=== PATIENT | female | born 1955 | race Caucasian/White ===

== ENCOUNTER 2019-11-18 20:21 | Emergency (ER) | payer OTHER, SELFPAY ==
--- OUTSIDE RECORDS SUMMARY | 2019-11-18 20:23 | XMS REPORT | Summary of Care ---
:1955 Author Name EMILIANO RAMOS M.D. Address Unavailable Unavailable , Care Team Providers Name Role Phone RICHARD Euceda, EMILIANO Unavailable Unavailable Dilan Valenzuela M.A. Unavailable Unavailable RICHARD FRANKS [place], EMILIANO Gusman Unavailable Unavailable MAUREEN FRANKS [place], JOSE Diaz Unavailable Unavailable Unavailable Unavailable Unavailable Functional Status Name Dates Details Functional status health issues are not documented Status: Name Dates Details Cognitive status health issues are not documented Status: Problems Name Dates Details Left knee pain (719.46, M25.562) Status: Active Primary localized osteoarthritis of left knee (715.16, M17.12) Status: Active Medications Name Dates Details Ventolin NEBU Refills: 0 Active ALPRAZolam 0.5 MG Oral Tablet Refills: 0 Active Adderall XR CP24 Refills: 0 Active Aspirin 81 81 MG Oral Tablet Delayed Release Refills: 0 Active Vitamin D-3 125 MCG (5000 UT) Oral Tablet Refills: 0 Active Choline 648 MG TABS Refills: 0 Active Cymbalta 30 MG Oral Capsule Delayed Release Particles Refills: 0 Active Esomeprazole Magnesium 20 MG Oral Capsule Delayed Release Refills: 0 Active Flonase Allergy Relief SUSP Refills: 0 Active Gabapentin TABS Refills: 0 Active Hydrochlorothiazide 100 MG TABS Refills: 0 Active Lantus SOLN Refills: 0 Active Liothyronine Sodium 25 MCG Oral Tablet Refills: 0 Active Magnesium 400 MG Oral Tablet Refills: 0 Active NovoLOG 100 UNIT/ML Subcutaneous Solution Refills: 0 Active Nucynta TABS Refills: 0 Active Benicar TABS Refills: 0 Active Premarin 0.625 MG/GM Vaginal Cream Refills: 0 Active Rexulti 1 MG Oral Tablet Refills: 0 Active Synthroid 100 MCG Oral Tablet Refills: 0 Active Vitamin C CAPS Refills: 0 Active Zyrtec 10 MG TABS Refills: 0 Active Meloxicam 7.5 MG Oral Tablet TAKE 1 TABLET TWICE DAILY. Quantity: 60 Refills: 6 EMILIANO RAMOS M.D. Start : 30-Oct-2018 Active Allergies and Adverse Reactions Name Dates Details No Known Allergies (Allergy) Status: Active Past Medical History Name Dates Details History of Asthma (493.90, J45.909) Status: Resolved History of bladder infections (V13.02, Z87.440) Status: Resolved History of CRPS (complex regional pain syndrome), type I, upper (337.21, G90.519) Status: Resolved History of Diabetes mellitus, type 2 (250.00, E11.9) Status: Resolved History of High blood pressure (401.9, I10) Status: Resolved History of reflex sympathetic dystrophy (V12.49, Z86.69) Status: Resolved History of vertigo (V12.49, Z87.898) Status: Resolved Procedures Procedure Dates Details History of Hip Replacement Right Completed History of Arm surgery Completed History of Cholecystectomy Completed History of Hysterectomy Completed History of Pain Management By Electrical Stimulus Completed Immunization Name Dates Details Immunizations not documented Family History Name Dates Details Family history of valvular heart disease (V17.49, Z82.49) Status: Active Name Dates Details Family history of No known problems (V49.89, Z78.9) Status: Active Social History Name Dates Details - Status: Name Dates Details Never smoker Vital Signs Date Test Result Details No Known Vitals to report Results Date Description Value Details Results not documented Plan of Care Name Dates Details Planned Observations Planned Goals not documented Interventions Provided Medication ChangesMeloxicam 7.5 MG Oral Tablet - Renew Instructions Name Dates Details Instructions not documented Encounters Appointment; EMILIANO RAMOS M.D. On: 30-Oct-2018 14:30 Encounter Diagnosis: Problem not documented
--- OUTSIDE RECORDS SUMMARY | 2019-11-18 20:23 | XMS REPORT ---
:1955 Author Organization [facility] Address [address] [place] [address] Care Team Providers Name Role Phone TERRI MICHAEL Unavailable Unavailable Problems This patient has no known problems. Allergies, Adverse Reactions, Alerts This patient has no known allergies or adverse reactions. Medications This patient has no known medications. Encounters Start End Encounter Admission Attending Care Care Encounter Date/Time Date/Time Type Type Clinicians Facility Department ID 2019-04-23 2019-05-24 Outpatient C JO ANN MICHAEL PT [id number] 15:26:00 23:59:00 TERRI
--- NOTE | 2019-11-18 20:59 | RAD REPORT ---
EXAM DESCRIPTION: RAD - Chest Single View - 11/18/2019 8:52 pm CLINICAL HISTORY: COUGH Chest pain. COMPARISON: No comparisons FINDINGS: Portable technique limits examination quality. The lungs are grossly clear. The heart is normal in size. No displaced fractures. IMPRESSION: No acute intrathoracic process suspected.
[2019-11-18 21:07] LABS: Absolute Lymphocytes (CBC) 1.4 K/uL (0.7-4.9); Basophils % 0.3 % (0-1.3); Hematocrit 40.1 % (36.0-45.0); Lymphocytes % 13.7 % (15.3-44.8); MPV 7.5 fL (7.6-11.3); RBC Red Blood Cell Count 4.55 M/uL (3.86-4.86)
[2019-11-18 21:11] LABS: Protime INR 0.96
[2019-11-18 21:15] LABS: ALT/SGPT 23 U/L (12-78); AST/SGOT 13 U/L (15-37); Albumin 3.9 g/dL (3.4-5.0); Alkaline Phosphatase 59 U/L (45-117); BUN Blood Urea Nitrogen 19 mg/dL (7-18); Bicarbonate 27 mmol/L (21-32); Bilirubin Direct 0.1 mg/dL (0-0.2); Bilirubin Total 0.3 mg/dL (0.2-1.0); CKMB Creatine Kinase MB 2.1 ng/mL (0.3-3.6); Creatine Phosphokinase 70 U/L (26-192); Glucose Level 106 mg/dL (74-106); Lipase 98 U/L (73-393); NT PRO-BNP 113 pg/mL (<125); Protein, Total 7.7 g/dL (6.4-8.2); Sodium Level 130 mmol/L (136-145); Troponin (Emerg Dept Use Only) < 0.02 ng/mL (0.0-0.045)
--- NOTE | 2019-11-18 21:48 | ER ---
Nurse's Notes [facility] Name: Karol Styles Age: 64 yrs Sex: Female : 1955 Arrival Date: 11/18/2019 Time: 20:23 Bed 7 Private MD: Diagnosis: Bronchitis, not specified as acute or chronic Presentation: 11/17 20:24 Chief complaint: EMS states: SHE WAS HAVING WEAKNESS, NON PRODUCTIVE COUGH, AND FEVER rv FOR A WEEK NOW. SHE CALLED HER DOCTOR AND WAS ADVISED TO COME TO CHECK IF SHE HAS PNEUMONIA. HER OXYGEN SATURATION IS AT 94-95% ON ROOM AIR. Coronavirus screen: Surgical mask placed on patient. Patient moved to private room, placed in contact and droplet isolation with eye protection until further assessment. Patient reports a cough. Patient reports shortness of breath or difficulty breathing. Patient denies measured and/or subjective temperature greater than 100.4F. Patient denies travel on a cruise ship or to a country the [facility] currently lists as an affected area. Patient denies contact with known and/or suspected case of COVID-19. Ebola Screen: No symptoms or risks identified at this time. Initial Sepsis Screen: Does the patient meet any 2 criteria? No. Patient's initial sepsis screen is negative. Does the patient have a suspected source of infection? No. Patient's initial sepsis screen is negative. Risk Assessment: Do you want to hurt yourself or someone else? Patient reports no desire to harm self or others. 20:24 Acuity: GAY 3 rv 20:24 Method Of Arrival: [facility] rv 20:24 Chief complaint: Patient states: I ALSO HAVE CHEST PRESSURE AND IT FEELS LIKE THERE'S rv AN ELEPHANT SITTING ON ME. AND IT STARTED ALSO A WEEK AGO. TODAY I STARTED TO FEEL DIZZY. 20:33 Onset of symptoms was November 12, 2019 at 08:00. rv Triage Assessment: 20:31 General: Appears in no apparent distress. comfortable, Behavior is calm, cooperative. rv Pain: Complains of pain in chest Pain does not radiate. Quality of pain is described as pressure. EENT: No signs and/or symptoms were reported regarding the EENT system. Neuro: Level of Consciousness is awake, alert, obeys commands, Oriented to person, place, time, situation. Cardiovascular: Patient's skin is warm and dry. Rhythm is regular Chest pain quality is heaviness, is located in left began a week ago. Respiratory: Reports shortness of breath at rest Airway is patent Respiratory effort is even, Breath sounds are clear bilaterally. Onset: The symptoms/episode began/occurred a week ago, the patient has mild shortness of breath. Derm: Skin is intact. Musculoskeletal: Reports weakness in generalized. Historical: - Allergies: 20:31 No Known Allergies; rv - Home Meds: 20:31 Symbicort inhalation inhalation [Active]; rv - PMHx: 20:31 Diabetes - IDDM; Asthma; Hypertension; rv - PSHx: 20:31 right arm sx; Hysterectomy; Cholecystectomy; hip replacement; Tonsillectomy; Hernia rv repair; - Immunization history:: Adult Immunizations up to date, Flu vaccine is up to date. - Social history:: Smoking status: Patient denies any tobacco usage or history of. Screenin:33 Abuse screen: Denies threats or abuse. Denies injuries from another. Nutritional rv screening: No deficits noted. Tuberculosis screening: No symptoms or risk factors identified. Fall Risk None identified. Assessment: 20:34 Reassessment: see triage notes. rv Vital Signs: 20:16 BP 159 / 101; Pulse 82; Resp 22; Pulse Ox 95% on R/A; Pain 0/10; lw1 20:24 BP 162 / 92; Pulse 89; Resp 18; Temp 98.9; Pulse Ox 97% on R/A; Weight 107.05 kg; rv Height 5 ft. 8 in. (172.72 cm); Pain 0/10; 21:17 BP 139 / 90; Pulse 75; Resp 20; Pulse Ox 95% on R/A; lw1 21:48 BP 134 / 78; Pulse 83; Resp 20; Pulse Ox 97% on R/A; Pain 0/10; lw1 20:24 Body Mass Index 35.88 (107.05 kg, 172.72 cm) rv ED Course: 20:23 Patient arrived in ED. ds1 20:23 Primo Martinez MD is Attending Physician. tw4 20:23 Pedro Suarez, SHARIF is Primary Nurse. rv 20:28 Triage completed. rv 20:30 First set of blood cultures drawn BY HCANTEL EKG done, by ED staff, reviewed by rr5 Primo Martinez MD. Inserted saline lock: 20 gauge in right forearm, using aseptic technique. ,using aseptic technique. BY CHANTEL. 20:33 Arm band placed on Patient placed in the treatment room, on a stretcher, Patient rv notified of wait time. 20:33 Patient has correct armband on for positive identification. hospital monitor on. Pulse rv ox on. NIBP on. 20:40 Second set of blood cultures drawn by mn. rr5 20:52 XRAY CXR (1 view) In Process Unspecified. EDMS 22:02 No provider procedures requiring assistance completed. IV discontinued, intact, rv bleeding controlled, No redness/swelling at site. Pressure dressing applied. Administered Medications: No medications were administered Outcome: 21:47 Discharge ordered by . tw4 22:03 Discharged to home ambulatory, with family. rv 22:03 Condition: good 22:03 Discharge instructions given to patient, family, Instructed on discharge instructions, follow up and referral plans. medication usage, Demonstrated understanding of instructions, follow-up care, medications, Prescriptions given X 3. 22:44 Patient left the ED. mw2 Signatures: Dispatcher [employer] EDOR Breanne Kelly ds1 Primo Martinez MD MD tw4 Andres Matt mw2 Pedro Suarez RN RN rv Chantel Arriaga, RN RN rr5 Katrina Ridley, RN RN lw1 Corrections: (The following items were deleted from the chart) 20:35 20:24 Method Of Arrival: EMS: [facility] rv rv 20:42 20:39 Inserted saline lock: 20 gauge in right forearm, using aseptic technique. ,using rv aseptic technique. BY CHANTEL rv 20:50 20:13 First set of blood cultures drawn BY CHANTEL EKG done, by ED staff, reviewed by rr5 Primo Martinez MD rv 20:50 20:13 Inserted saline lock: 20 gauge in right forearm, using aseptic technique. ,using rr5 aseptic technique. BY CHANTEL rv
--- NOTE | 2019-11-18 21:48 | EDPHYS ---
Physician Documentation [facility] Name: Karol Styles Age: 64 yrs Sex: Female : 1955 Arrival Date: 11/18/2019 Time: 20:23 Bed 7 Private MD: ED Physician Primo Martinez HPI: 11/18 04:59 This 64 yrs old Female presents to ER via EMS with complaints of Shortness Of tw4 Breath, Fever. 04:59 The patient has shortness of breath at rest. Onset: The symptoms/episode began/occurred tw4 1 week(s) ago. Duration: The symptoms are continuous, and are unchanged since they started. The patient's shortness of breath has no apparent modifying factors. Associated signs and symptoms: The patient has no apparent associated signs or symptoms. Severity of symptoms: At their worst the symptoms were mild in the emergency department the symptoms are unchanged. The patient has not experienced similar symptoms in the past. Historical: - Allergies: 11/17 20:31 No Known Allergies; rv - Home Meds: 20:31 Symbicort inhalation inhalation [Active]; rv - PMHx: 20:31 Diabetes - IDDM; Asthma; Hypertension; rv - PSHx: 20:31 right arm sx; Hysterectomy; Cholecystectomy; hip replacement; Tonsillectomy; Hernia rv repair; - Immunization history:: Adult Immunizations up to date, Flu vaccine is up to date. - Social history:: Smoking status: Patient denies any tobacco usage or history of. ROS: 11/18 04:59 Back: Negative for injury and pain, MS/Extremity: Negative for injury and deformity, tw4 Skin: Negative for injury, rash, and discoloration. Respiratory: Positive for cough, shortness of breath, Negative for dyspnea on exertion, hemoptysis, orthopnea, pleurisy. 04:59 Eyes: Negative for injury, pain, redness, and discharge, ENT: Negative for injury, tw4 pain, and discharge, Neck: Negative for injury, pain, and swelling, Cardiovascular: Negative for chest pain, palpitations, and edema, Abdomen/GI: Negative for abdominal pain, nausea, vomiting, diarrhea, and constipation, Neuro: Negative for headache, weakness, numbness, tingling, and seizure. 04:59 Constitutional: Positive for fever, Negative for body aches, chills, fatigue, poor PO intake, weight loss. Exam: 04:59 Constitutional: This is a well developed, well nourished patient who is awake, alert, tw4 and in no acute distress. Head/Face: Normocephalic, atraumatic. Chest/axilla: Normal chest wall appearance and motion. Nontender with no deformity. No lesions are appreciated. Cardiovascular: Regular rate and rhythm with a normal S1 and S2. No gallops, murmurs, or rubs. Normal PMI, no JVD. No pulse deficits. Respiratory: Lungs have equal breath sounds bilaterally, clear to auscultation and percussion. No rales, rhonchi or wheezes noted. No increased work of breathing, no retractions or nasal flaring. Abdomen/GI: Soft, non-tender, with normal bowel sounds. No distension or tympany. No guarding or rebound. No evidence of tenderness throughout. Back: No spinal tenderness. No costovertebral tenderness. Full range of motion. MS/ Extremity: Pulses equal, no cyanosis. Neurovascular intact. Full, normal range of motion. Neuro: Awake and alert, GCS 15, oriented to person, place, time, and situation. Cranial nerves II-XII grossly intact. Motor strength 5/5 in all extremities. Sensory grossly intact. Cerebellar exam normal. Normal gait. Vital Signs: 11/17 20:16 BP 159 / 101; Pulse 82; Resp 22; Pulse Ox 95% on R/A; Pain 0/10; lw1 20:24 BP 162 / 92; Pulse 89; Resp 18; Temp 98.9; Pulse Ox 97% on R/A; Weight 107.05 kg; rv Height 5 ft. 8 in. (172.72 cm); Pain 0/10; 21:17 BP 139 / 90; Pulse 75; Resp 20; Pulse Ox 95% on R/A; lw1 21:48 BP 134 / 78; Pulse 83; Resp 20; Pulse Ox 97% on R/A; Pain 0/10; lw1 20:24 Body Mass Index 35.88 (107.05 kg, 172.72 cm) rv MDM: 21:47 Patient medically screened. tw4 11/18 04:59 Differential diagnosis: Anemia Anxiety Reaction pneumonia, reactive airway disease, tw4 Sepsis. Antibiotic administration: The patient is discharged and will get outpatient antibiotics, Zithromax. Data reviewed: vital signs, nurses notes. Data interpreted: Pulse oximetry: Interpretation: normal. Counseling: I had a detailed discussion with the patient and/or guardian regarding: the historical points, exam findings, and any diagnostic results supporting the discharge/admit diagnosis. Physician consultation: Eric Franklin MD regarding need to evaluate the patient as soon as possible, and will see patient in office. Special discussion: I discussed with the patient/guardian in detail that at this point there is no indication for admission to the hospital. It is understood, however, that if the symptoms persist or worsen the patient needs to return immediately for re-evaluation. 11/17 20:24 Order name: Blood Culture Adult (2) 11/17 20:24 Order name: BMP; Complete Time: 21:41 11/17 21:41 Interpretation: Normal except: NA 130; CL 96; BUN 19; GFR 49. 11/17 20:24 Order name: CBC with Diff; Complete Time: 21:41 11/17 21:41 Interpretation: Normal except: MPV 7.5; LYM% 13.7; FREDY% 80.9; NEUT A 8.4. 11/17 20:24 Order name: Ckmb; Complete Time: :11/17 21:42 Interpretation: Within normal limits: CKMB 2.1. 11/17 20:24 Order name: CPK; Complete Time: 21:41 11/17 21:42 Interpretation: Within normal limits: CPK 70. 11/17 20:24 Order name: Hepatic Function; Complete Time: 21:41 11/17 21:41 Interpretation: Normal except: GLOB 3.8; A/G 1.0; AST 13. 11/17 20:24 Order name: Lipase; Complete Time: 21:41 11/17 20:24 Order name: Magnesium; Complete Time: 21:41 11/17 20:24 Order name: NT PRO-BNP; Complete Time: 21:41 11/17 20:24 Order name: PT-INR; Complete Time: 21:41 11/17 20:24 Order name: Ptt, Activated; Complete Time: 21:41 11/17 21:42 Interpretation: Normal except: PTT 37.5. tw4 11/17 20:24 Order name: Troponin (emerg Dept Use Only); Complete Time: 21:41 tw4 11/17 20:24 Order name: Flu; Complete Time: :41 tw11/17 20:50 Order name: Glucose, Ancillary Testing; Complete Time: 21:41 EDMS 11/17 20:24 Order name: XRAY CXR (1 view); Complete Time: 21:41 tw4 11/17 20:24 Order name: EKG; Complete Time: 20:26 tw4 11/17 20:24 Order name: Cardiac monitoring; Complete Time: 20:40 tw4 11/17 20:24 Order name: EKG - Nurse/Tech; Complete Time: 20:40 tw11/17 20:24 Order name: IV Saline Lock; Complete Time: 20:40 tw11/17 20:24 Order name: Labs collected and sent; Complete Time: 20:40 tw11/17 20:24 Order name: O2 Per Protocol; Complete Time: 20:40 tw4 11/17 20:24 Order name: O2 Sat Monitoring; Complete Time: 20:40 tw4 EC:59 Rate is 71 beats/min. Rhythm is regular, Sinus arrythmia. QRS [place] is Normal. MI tw4 interval is normal. QRS interval is normal. QT interval is normal. No Q waves. T waves are Normal. No ST changes noted. Clinical impression: Sinus arrythmia. Interpreted by me. Reviewed by me. Administered Medications: No medications were administered Disposition: 11/18/19 21:47 Discharged to Home. Impression: Bronchitis, not specified as acute or chronic. - Condition is Stable. - Discharge Instructions: Acute Bronchitis, Adult, Upper Respiratory Infection, Adult. - Prescriptions for Tessalon Perles 100 mg Oral Capsule - take 1 capsule by ORAL route every 8 hours As needed; 15 capsule. Zithromax Z- Tyler 250 mg Oral Tablet - take 1 tablet by ORAL route as directed for 5 days Day 1 - take two (2) tablets one time. Day 2, 3, 4 , 5 take one (1) tablet once daily.; 6 tablet. Guaifenesin AC 10- 100 mg/5 mL Oral Liquid - take 10 milliliter by ORAL route every 4 hours As needed; 240 milliliter. - Medication Reconciliation Form, Thank You Letter, Antibiotic Education, Prescription Opioid Use form. - Follow up: Private Physician; When: Upon discharge from the Emergency Department; Reason: Recheck today's complaints, Re-evaluation by your physician. - Problem is new. - Symptoms have improved. Signatures: Dispatcher [employer] Primo Menezes MD MD tw4 Andres Matt mw2 Pedro Suarez, RN RN rv Corrections: (The following items were deleted from the chart) 11/17 22:44 21:47 11/18/2019 21:47 Discharged to Home. Impression: Bronchitis, not specified as mw2 acute or chronic. Condition is Stable. Forms are Medication Reconciliation Form, Thank You Letter, Antibiotic Education, Prescription Opioid Use. Follow up: Private Physician; When: Upon discharge from the Emergency Department; Reason: Recheck today's complaints, Re-evaluation by your physician. Problem is new. Symptoms have improved. tw4 11/18 05:01 04:59 Constitutional: Negative for fever, chills, and weight loss, Eyes: Negative for tw4 injury, pain, redness, and discharge, Cardiovascular: Negative for chest pain, palpitations, and edema, Abdomen/GI: Negative for abdominal pain, nausea, vomiting, diarrhea, and constipation, tw4
[2019-11-18 22:55] VITALS: BP 134/78; O2SAT 97
[2019-11-18 23:13] VITALS: TEMP 98
--- NOTE | 2019-11-19 05:24 | EKG ---
Test Date: 2019-11-18 Test Time: 20:40:09 Fence Gate Assembler: DAVINA MEASUREMENT RESULTS: Intervals: Rate: 71 RI: 178 QRSD: 84 QT: 384 QTc: 417 [place]: P: 80 RI: 178 QRS: 15 T: 67 INTERPRETIVE STATEMENTS: Normal sinus rhythm with sinus arrhythmia Normal ECG Compared to ECG 05/31/1995 16:00:00 No significant changes Electronically Signed On 11-19-19 05:23:39 CDT by Chetan Johnson
== END 2019-11-18 22:44 | disposition home or self-care (01) ==
LOC: ER 20:21
DX: J40 Bronchitis, not specified as acute or chronic (principal); I10 Essential (primary) hypertension
CPT/HCPCS: 36415; 71045; 80048; 80076; 82550; 82553; 82947; 83690; 83735; 83880; 84484; 85025; 85610; 85730; 87040; 87804; 93005; 99285

== ENCOUNTER 2022-03-03 11:54 | Observation (INO) | payer OTHER ==
[2022-03-03] MEDS: NA CHLORIDE 0.9% 1,000 ML IV SCH (16:01)
[2022-03-03 16:42] VITALS: O2SAT 97; BMI 34.9
[2022-03-03] MEDS ORDERED: FUROSEMIDE 20 MG/ 2ML VIAL IV ONE (19:00)
[2022-03-03] MEDS ORDERED: ALBUTEROL INHALER 60 PUFF/8 GM IH PRN (21:27)
[2022-03-03] MEDS ORDERED: TRAMADOL HCL 50 MG TAB PO PRN (21:27)
[2022-03-03] MEDS ORDERED: ENOXAPARIN 40 MG/0.4 ML SQ ONE (21:35)
[2022-03-03] MEDS ORDERED: clonazePAM 0.5 MG TAB PO SCH (22:00)
[2022-03-03] MEDS ORDERED: PREGABALIN 75 MG CAP PO SCH (22:00)
[2022-03-03] MEDS ORDERED: ARIPiprazole 5 MG TAB PO SCH (22:00)
[2022-03-04] MEDS: NA CHLORIDE 0.9% 1,000 ML IV SCH (05:31)
[2022-03-04] MEDS ORDERED: LEVOTHYROXINE SOD 0.088 MG TAB PO SCH (06:00)
[2022-03-04 06:19] LABS: Potassium 3.8 mmol/L (3.5-5.1)
[2022-03-04 06:28] VITALS: BP 115/57; TEMP 97.6
[2022-03-04] MEDS ORDERED: AMLODIPINE 5 MG TAB PO ONE (07:30)
[2022-03-04] MEDS ORDERED: ALBUTEROL 2.5 MG/3 ML NEB SOL NEB PRN (07:47)
[2022-03-04] MEDS ORDERED: COSYNTROPIN 0.25 MG VIAL IV ONE (08:00)
--- NOTE | 2022-03-04 08:08 | HP ---
Date of Admission: 03/03/2022 Chief Complaint: Abnormal blood test. History Of Present Illness: This is a 66-year-old very pleasant female patient, who came to see me f or preop clearance for back surgery and she was evaluated on March 01, 2022 and yesterday we did preop outpatient blood work and her sodium level came back at 124. The patient was contacted with this ab normal blood test results and was advised to get admitted to the hospital. She has some symptoms rel ated to this hyponatremia and reports that she feels like she is a little bit confused as she has not ed lately. No nausea, no vomiting. Her sodium level which was done by her orthopedic surgeon in [facility] was 129 and that is why she was sent for preop clearance, and now it is 124. The patient was co ntacted with these abnormal labs and she was advised to come to office today and the patient came in with her . Details were discussed and hospital admission was planned for her today. Allergies: NO KNOWN ALLERGIES. Medications: Trimethoprim 100 mg daily, clonazepam 0.5 mg 3 times a day, oxybutynin 10 mg daily, Evelyn lify 5 mg at bedtime, tramadol 50 mg 3 times a day as needed, albuterol inhaler as needed, aspirin 81 mg daily which she was taking it up until yesterday and I have instructed her not to take aspirin an ymore because of her upcoming back surgery and originally she had scheduled surgery for this Monday, but obviously I have asked her to cancel that because she was still taking aspirin and now with hypon atremia, her surgery will need to be postponed as well. Atorvastatin 20 mg daily, Symbicort 2 puffs 2 times a day, Wellbutrin 200 mg daily, carvedilol 3.125 mg 2 times a day, duloxetine 60 mg she takes 2 capsules daily, omeprazole 40 mg daily, hydrochlorothiazide she takes 12.5 mg every other day. Joanne teixeira takes insulin pump for her diabetes management, levothyroxine 88 mcg daily, liothyronine 5 mcg take s 2 tablets daily, magnesium oxide 400 mg 2 times a day, olmesartan 40 mg she takes half a tablet 2 t imes a day, Lyrica 75 mg 2 times a day. Review of Systems: Musculoskeletal: Chronic back pain. All other systems reviewed and negative. Past Medical History: Significant for stroke in August 2020, hypothyroidism, type 2 diabetes mellit us, diabetic neuropathy, asthma mild persistent, hypertension, mixed hyperlipidemia, gastroesophageal reflux disease, osteoarthritis at multiple sites, chronic anemia, anxiety, depression, attention def icit disorder, and complex regional pain syndrome. Past Surgical History: Hysterectomy, back surgery in January 2022, hip surgery, knee and foot surgery. Family History: Details unknown about her biological parents as she was adopted. Social History: Negative for smoking and alcohol use. Physical Examination: Vital Signs: Upon admission; temperature 96.9, pulse 69, respiratory rate 18, blood pressure 139/68. Height 5 feet 8 inches, weight 230 pounds. General: Awake, alert, oriented, not in distress. HEENT: Head atraumatic, normocephalic. Conjunctivae nonerythematous. Sclerae white. Mouth, no thr ush or edema noted. Ears/Nose, no mass, lesion, discharge noted. Neck: Supple. No JVD, lymph nodes, bruit, thyromegaly noted. Lungs: Bilateral good equal air entry. Clear to auscultation. No rhonchi. No rales. Heart: Normal heart sounds, no murmur or gallop. Abdomen: Soft, bowel sounds normal. No guarding, rigidity, tenderness, mass, hepatosplenomegaly, dis tention, or bruit noted. Extremities: No leg edema. No calf tenderness. Skin: No rash, ulcer, cellulitis. Lymphatics: No lymph node enlargement in neck, supraclavicular, infraclavicular region. Neuro: No focal neurological deficit. Chest: Unremarkable. External Genitalia: Deferred. Rectal: Deferred. Laboratory Data: Outpatient labs yesterday showed sodium 124, potassium 4.5, chloride 90, bicarb 30, BUN 17, creatinine 1.09, glucose 96. Liver function tests unremarkable. Hemoglobin A1c 6.7, TSH 1. 69. White count 3.9, hemoglobin 11.9, platelets 284. Today after admission to the hospital; sodium 128, potassium 4, chloride 95, bicarb 28, BUN 16, creatinine 1.28, glucose 136. Impression: 1.Hyponatremia. 2.Hypertension. 3.Mixed hyperlipidemia. 4.Type 2 diabetes mellitus with diabetic neuropathy. 5.Mild persistent asthma. 6.Anxiety. 7.Depression. 8.Osteoarthritis, multiple sites. 9.Gastroesophageal reflux disease. Plan: We will go ahead and admit the patient to hospital for further evaluation and management of th is problem. The patient is appropriate for inpatient and is expected to spend 2 midnights in [facility]. We will go ahead and give DVT prophylaxis using Lovenox per order, start the patient on IV fluid normal saline at 75 cc/hour, and we will give 1 dose of Lasix 20 mg IV. Tomorrow morning, we will ge t fasting lipid profile and cortisol stimulation test. If she does not respond to treatment with jonelle ine and furosemide, then we will go ahead and if her sodium level gets worse, we may have to consider 3% hypertonic saline solution. All these details were discussed with the patient and the patient's . We will discontinue her hydrochlorothiazide. HEMAL/MODL Voice ID: [id number]
[2022-03-04] MEDS ORDERED: buPROPion HCL 100 MG TAB PO SCH (09:00)
[2022-03-04] MEDS ORDERED: DULERA 200/5 (MOMETASONE/FORMOTEROL) INHALER IH SCH (09:00)
[2022-03-04] MEDS ORDERED: DULOXETINE 30 MG CAP PO SCH (09:00)
[2022-03-04] MEDS ORDERED: OXYBUTYNIN ER 5 MG TAB PO SCH (09:00)
[2022-03-04] MEDS ORDERED: carvediloL 3.125 MG TAB PO SCH (09:00)
[2022-03-04] MEDS ORDERED: PANTOPRAZOLE 40MG TABLET PO SCH (09:00)
[2022-03-04] MEDS ORDERED: LIOTHYRONINE SOD 5 MCG TAB PO SCH (09:00)
[2022-03-04] MEDS ORDERED: ENOXAPARIN 40 MG/0.4 ML SQ SCH (17:00)
[2022-03-04] MEDS ORDERED: ATORVASTATIN 20 MG TAB PO SCH (21:00)
--- NOTE | 2022-03-05 13:12 | DS ---
Date of Discharge: 03/04/2022 Disposition: Discharged to go home. Physical Examination: HEENT: Unremarkable. Lungs: Clear to auscultation. Heart: Sounds normal. Abdomen: Soft. Bowel sounds normal. No guarding, rigidity, tenderness, distention. Extremity: No leg edema. Laboratory Data: Today; sodium 133, potassium 3.8, chloride 100, bicarb 27, BUN 18, creatinine 1.20, glucose 89, triglycerides 82. TSH was normal that was done on outpatient basis. LDL 41, total chol esterol 138, HDL 81. Yesterday sodium level was 128 and outpatient sodium was 123. Discharge Medications And Instructions: Continue all prior home medication except following changes. 1.Stop olmesartan. 2.Stop hydrochlorothiazide. 3.Start amlodipine 5 mg daily in the morning. 4.Follow up at my office next week on 03/09/2022 and come to office on 03/08/2022 for known fasting blood work. 5.Do not take any aspirin, Aleve, Motrin, or Celebrex type of medications. Hospital Course: This is a 66-year-old pleasant female patient, admitted to the hospital with hypona tremia problem. Please see dictated H and P for more information. After the patient had outpatient blood work done day before her admission to the hospital, her chemistry results showed sodium level w as 123, so the patient was contacted requesting admission to the hospital for further management of t his hyponatremia problem. After she was admitted to the hospital, she received IV fluid normal salin e at 75 cc/hour and 1 dose of Lasix 20 mg IV was given. Overnight, her condition has improved, sodiu m level has increased to 133 and she was discharged to go home in stable condition with above-mention ed medications and instructions. Final Diagnoses: 1.Hyponatremia. 2.Hypertension. 3.Hyperlipidemia. 4.Asthma. HEMAL/MODL Voice ID: [id number] Report ID: [id number]
== END 2022-03-04 11:07 | disposition home or self-care (01) ==
LOC: INTOOBSV 14:28 → 2ND 14:28
PROVIDERS: ADMIT Internal Medicine; ATTEND Internal Medicine
DX: E87.1 Hypo-osmolality and hyponatremia (principal); I10 Essential (primary) hypertension; E78.2 Mixed hyperlipidemia; G89.29 Other chronic pain; M54.9 Dorsalgia, unspecified; E03.9 Hypothyroidism, unspecified; E11.40 Type 2 diabetes mellitus with diabetic neuropathy, unspecified; J45.30 Mild persistent asthma, uncomplicated; K21.9 Gastro-esophageal reflux disease without esophagitis; M15.9 Polyosteoarthritis, unspecified; D64.9 Anemia, unspecified; F41.9 Anxiety disorder, unspecified; F32.A Depression, unspecified; F98.8 Other specified behavioral and emotional disorders with onset usually occurring in childhood and adolescence; G90.50 Complex regional pain syndrome I, unspecified; Z20.822 Contact with and (suspected) exposure to COVID-19; Z86.73 Personal history of transient ischemic attack (TIA), and cerebral infarction without residual deficits; Z79.82 Long term (current) use of aspirin; Z79.4 Long term (current) use of insulin; Z79.899 Other long term (current) drug therapy; Z90.710 Acquired absence of both cervix and uterus
CPT/HCPCS: 80048 ×2; 36415; 80061; 82947 ×3; 82533 ×4; 82024; U0003; J1940; J0834; J3535; J7030 ×2; G0379; G0378 ×2